=== PATIENT | female | born 1950 | race Caucasian/White ===

== ENCOUNTER → 2017-09-29 15:19 | Outpatient (CLI) | payer MEDICARE, OTHER, SELFPAY ==
--- NOTE | 2017-09-29 | DI.MRI.S_ITS ---
PROCEDURE: MR KNEE RT WO CON INDICATIONS: Right knee pain TECHNIQUE: Noncontrast sagittal PD fast spin echo and T2 fast spin echo with fat saturation, sagittal 3-D FLASH with fat saturation; coronal T1 spin echo and PD fast spin echo with fat saturation, and axial PD fast spin echo with fat saturation through the knee. COMPARISON: [facility] [place], [place], XR KNEE ARTHRITIC SERIES BI, 06/03/2017, 10:24. FINDINGS: Image quality: Excellent. Menisci: There is medial extrusion of the medial meniscus. There is radial tearing of the posterior horn medial meniscus, with superior and inferior articular surface extension. Horizontal tearing of the medial meniscal body and anterior horn is present. Amorphous high signal intensity within the anterior horn lateral meniscus is present with superior articular surface extension. Radial tearing of the free edge of the lateral meniscal body is present. Cruciate ligaments: The anterior and posterior cruciate ligaments appear intact. Medial structures: The medial collateral ligament appears intact. There is a small amount of fluid deep to the medial collateral ligament fibers. The posterior oblique ligament, semimembranosus tendon insertions, oblique popliteal ligament, and meniscocapsular junction appear intact. Visualized portions of the pes anserinus tendons appear normal. No abnormal bursal fluid. Lateral structures: The lateral collateral ligament, long and short heads of the biceps femoris tendon appear intact. The popliteus tendon appears normal; the popliteofibular ligament appears intact. The posterosuperior and anteroinferior popliteomeniscal fascicles appear intact. The arcuate and fabellofibular ligaments appear intact, on either side of the lateral inferior geniculate artery. Iliotibial band appears normal. Anterior structures: The quadriceps and patellar tendons appear intact. Patellar alignment is normal. No femoral trochlear dysplasia or ventral trochlear prominence. No edema in the infrapatellar fat pad. Bones and cartilage: No bone marrow contusions nor acute fractures. Subchondral low T2 signal intensity within the weightbearing aspects of the medial femoral condyle and medial tibial plateau. There is cortical irregularity overlying the mid/anterior weightbearing aspect of the lateral femoral condyle. Severe tricompartmental periarticular osteophyte formation is present. There is moderate ill-defined, presumably degenerative marrow edema within the medial lateral tibial plateau, medial lateral femoral condyle, as well as the lateral patellar facet and lateral femoral trochlea. Severe diffuse articular cartilage loss overlies the weightbearing aspects of the medial femoral condyle and medial tibial plateau. Moderate to severe diffuse irregular articular cartilage loss overlies the weightbearing aspects of the lateral femoral condyle and lateral tibial plateau. Severe diffuse articular cartilage loss overlies the medial and lateral patellar facets, as well as the lateral femoral trochlea. Joint space: There is a small knee joint effusion and a trace Corley's cyst. Normal appearing synovial plicae are incidentally noted. IMPRESSION: 1. Severe tricompartmental osteoarthritis with associated articular cartilage loss. Osteochondral injury within the medial femoral condyle and medial tibial plateau. 2. Possible chronic fracture deformity of the lateral femoral condyle. 3. Medial and lateral meniscal tearing. 4. Medial collateral ligament bursitis. 5. Knee joint effusion and trace Corley's cyst. Dictated by: Manish Carver M.D. on 09/29/2017 at 16:36 Approved by: Manish Carver M.D. on 09/29/2017 at 16:40
== END ==
PROVIDERS: PCP Family Medicine; Visit Provider Orthopaedic Surgery
DX: M25.561 Pain in right knee (principal); M17.11 Unilateral primary osteoarthritis, right knee; S83.241A Other tear of medial meniscus, current injury, right knee, initial encounter; S83.281A Other tear of lateral meniscus, current injury, right knee, initial encounter; M70.51 Other bursitis of knee, right knee; M25.461 Effusion, right knee
CPT/HCPCS: 73721

== ENCOUNTER → 2017-10-18 13:51 | Outpatient (CLI) | payer MEDICARE, OTHER, SELFPAY ==
[2017-10-18 14:06] LABS: Bacteria Urine None Seen; RBC Urine None Seen (0-5/HPF)
[2017-10-18 15:06] LABS: Add Manual Diff / Slide Review NO; Basophils Percent Auto 1.3 % (0-2); Eosinophils Percent Auto 6.4 % (2-4); Hematocrit 39.6 % (36-46); Hemoglobin 13.3 g/dL (12.0-16.0); Lymphocytes Percent Auto 20.5 % (25-40); Mean Corpuscular HGB Conc 33.6 % (30-36); Mean Corpuscular Hemoglobin 30.1 PG (26-34); Mean Corpuscular Volume 89.7 fL (80-100); Monocytes Percent Auto 8.9 % (3-14); Neutrophils Absolute Auto 2600 /uL (3000-5900); Neutrophils Percent Auto 62.9 % (50-75); Platelet Count 228 X10^3/uL (150-400); Red Blood Cell Count 4.41 X10^6/uL (4.0-5.2); Red Cell Distribution Width 13.6 % (11.6-14.8); White Blood Cell Count 4.1 X10^3/uL (4.5-11.0)
[2017-10-18 15:19] LABS: Hemoglobin A1C% w Est Avg Glu 4.9 % (4.0-6.0)
[2017-10-18 15:26] LABS: Appearance Urine UA CLEAR; Bilirubin Urine UA NEGATIVE (NEGATIVE); Color Urine UA YELLOW; Glucose Urine UA NEGATIVE (Normal); Ketones Urine UA NEGATIVE (NEGATIVE); Leukocyte Esterase Urine UA NEGATIVE (NEGATIVE); Nitrite Urine UA Negative (Negative); Occult Blood Urine UA NEGATIVE (Negative); Protein Urine UA NEGATIVE (Negative); Specific Gravity Urine UA <=1.005 (1.000-1.035); Urobilinogen Urine UA 0.2 E.U./dL (0.2)
[2017-10-18 15:31] LABS: BUN Creatinine Ratio 21.4 (6-22); Blood Urea Nitrogen 15 mg/dL (7-17); Calcium 9.5 mg/dL (8.4-10.2); Carbon Dioxide 31 mmol/L (22-32); Chloride 101 mmol/L (98-107); Estimated Glomerular Filt Rate > 60.0 mL/min (>60); Glucose 81 mg/dL (80-110); HEMOLYSIS < 15 (0-50); Potassium 4.5 mmol/L (3.4-5.1); Sodium 141 mmol/L (137-145)
[2017-10-18 15:58] LABS: Culture Indicated Urine Cult Not Indicated; Squamous Epithelial Cell Urine 0-1 /HPF; WBC Urine 0-1/HPF (0-5/HPF)
== END ==
PROVIDERS: PCP Family Medicine; Visit Provider Orthopaedic Surgery
DX: N39.9 Disorder of urinary system, unspecified (principal); R73.09 Other abnormal glucose; Z01.812 Encounter for preprocedural laboratory examination; Z01.818 Encounter for other preprocedural examination
CPT/HCPCS: 36415; 80048; 81001; 83036; 85025; 93005

== ENCOUNTER 2017-11-26 07:31 | Observation (INO) | payer MEDICARE, OTHER, SELFPAY ==
[2017-11-17 12:44] VITALS: BMI 27.9
[2017-11-25] VITALS (15 sets, daily range): BP systolic 102–143; BP diastolic 52–97; PULSE 67–87; RESP 10–16; TEMP 36–36.9; O2SAT 93–100; BMI 27.9
--- NOTE | 2017-11-25 06:00 | DI.RAD.S_ITS ---
PROCEDURE: XR KNEE RT 1TO2V INDICATIONS: post op TECHNIQUE: 2 view(s) of the knee acquired. COMPARISON: None. FINDINGS: Bones: Patient is status post knee joint arthroplasty. Hardware components are in expected positions. Visualized bony structures are intact. Soft tissues: Overlying postoperative changes are noted. IMPRESSION: Surgical drain overlies the operative bed. Normal postoperative alignment after right total knee arthroplasty. Dictated by: Devang Quesada M.D. on 11/25/2017 at 11:19 Approved by: Devang Quesada M.D. on 11/25/2017 at 11:19
[2017-11-25] MEDS: MELOXICAM 7.5 MG TABLET 15 MG PO (07:04)
[2017-11-25] MEDS: ACETAMINOPHEN 325 MG TABLET 975 MG PO ×2 (07:04→16:06)
[2017-11-25] MEDS: PREGABALIN 75 MG CAPSULE PO (07:04)
[2017-11-25] MEDS: LACTATED RINGERS 1,000 ML 42 ML IV (07:05)
[2017-11-25] MEDS: VANCOMYCIN 1,000 MG/200 ML FROZ.PIGGY 200 MG IV (07:12)
--- NOTE | 2017-11-25 07:32 | PM.PREOP ---
Pre-operative Note Interval Note Pre-op Check: Yes History & Physical Reviewed by Physician and Yes Exam Performed Changes: No
--- NOTE | 2017-11-25 07:32 | PM.OP.1 ---
Operative Date/Time/Diagnoses Date of procedure: 11/25/17 Time of procedure: 07:58 Pre-op diagnosis: right knee oa Post-op diagnosis: same Procedure & Clinicians Procedure: right total knee Same procedure as scheduled: Yes Indications: The patient has had progressively worsening right knee pain with radiographic changes consistent with arthritis. Non-operative management has failed and the patient has requested total knee replacement. The risks, benefits and alternatives to surgery were discussed with the patient prior to proceeding. Risks discussed included, but were not limited to, failure to relieve pain, stiffness, infection, nerve damage, deep venous thrombosis, pulmonary embolism, stroke, coma, heart attack, permanent paralysis and , as well as the potential need for eventual revision of the prosthetic. Surgeon: Nikki Ta Environmental Field Office Manager: Ashley Watkins Anesthesia Type: Spinal Operative Notes Findings: Severe right knee osteoarthritis Closure Type: primary Implants & Drains: Ta and Nephalvino Dominguez BCS2 femur 6, tibia 5, poly 9, patella 35 by 9 Applied: drain(s) Estimated Blood Loss (mL): 250 Blood products transfused: none Tourniquet time (min): 72 Procedure in detail: The patient was seen in the pre-operative area, where the patient identified the right knee as the operative site and this was marked with my initials. The patient received pre-operative antibiotics, and was taken to the operating room and placed on the operative table in the supine position. After satisfactory anesthesia, a multimedia programmer out was performed. The right leg was encircled with a tourniquet about the proximal thigh, and the leg was prepared from the toes to the tourniquet with ChloroPrep in the usual fashion and draped through sterile drapes. The leg was elevated and exsanguinated with Eschmark bandage and the tourniquet inflated to [250] mmHg pressure. The knee was approached through an approximately 18 cm incision centered over the patella and carried into the knee through a medial parapatellar arthrotomy. Portion of the medial and lateral meniscus was resected. Soft tissue was carefully mobilized around the patella the patella was measured with a caliper. Bone was resected from the patella and the patellar height was reconstituted with up an appropriate sized patellar component. For a cover was then placed on the patella. A small amount of additional medial and lateral meniscus was resected. The visionare guide fit well to the distal femur. It looked like an appropriate distal femoral cut and the cut was made without difficulty. The rotation was assessed and the appropriate size femoral guide was placed on the distal femur and finishing cuts were made. There was no evidence of notching. The anterior, posterior and chamfer cuts were then made. The posterior osteophytes and soft tissues were then removed. The posterior capsule was injected with part of a mixture of 60 ml 0.25% Marcaine mixed with 20 ml Exparel for post operative pain control. The remainder of this mixture was injected into the capsule and subcutaneous tissues during cement curing. The tibia was prepared and the visionaire guide fit well to the distal tibia. The rotation was assessed. The patient was placed in extension residual medial and lateral meniscus as well as any residual bone was carefully resected. [No] additional tibia was resected. Hemostasis was achieved especially posteriorly. Additional local was injected into the posterior capsule. The extension gap was assessed and additional releases for gap balancing were performed as necessary. It was checked with the gap motorcycle police officer. The femoral component was trial was placed and the notch was finished. Trial tibial and femoral components were then placed and the knee placed through a range of motion. Range of motion was [0-130], with good stability throughout the range. The trials were then removed, and the tibia was finished. The bone was prepared with pulsatile lavage, and dried with a sponge. Cement was applied and the final prosthetics placed. Excess cement was removed during and after cement curing. A brief Betadine soak was performed. After confirming there was no extruded cement posteriorly, the final tibial insert was placed. The knee was copiously irrigated and the tourniquet deflated. Hemostasis was obtained with the [Aquamantys system]. A drain was placed and brought out superolaterally. The capsule was closed with interrupted # 1 black braided suture. The subcutaneous layer was closed with barbed sutures, and the skin with a running 3-0 V-Lock suture and Surgical glue. An Aquacel Ag dressing was applied and the patient was taken to recovery having tolerated the procedure well. Complications: none Condition: stable Disposition: Acute Care Plan for aftercare: The patient will be maintained on a standard total knee replacement protocol with weight bearing as tolerated. The patient will receive Lovenox and sequential compression devices for DVT prophylaxis. The patient will be discharged home when safe for the home environment.
--- NOTE | 2017-11-25 07:39 | P.OP_ITS ---
Operative Date/Time/Diagnoses Date of procedure: 11/25/17 Time of procedure: 07:58 Pre-op diagnosis: right knee oa Post-op diagnosis: same Procedure & Clinicians Procedure: right total knee Same procedure as scheduled: Yes Indications: The patient has had progressively worsening right knee pain with radiographic changes consistent with arthritis. Non-operative management has failed and the patient has requested total knee replacement. The risks, benefits and alternatives to surgery were discussed with the patient prior to proceeding. Risks discussed included, but were not limited to, failure to relieve pain, stiffness, infection, nerve damage, deep venous thrombosis, pulmonary embolism, stroke, coma, heart attack, permanent paralysis and , as well as the potential need for eventual revision of the prosthetic. Surgeon: Nikki Ta Roller Inspector: Ashley Watkins Anesthesia Type: Spinal Operative Notes Findings: Severe right knee osteoarthritis Closure Type: primary Implants & Drains: Ta and Nephalvino Dominguez BCS2 femur 6, tibia 5, poly 9, patella 35 by 9 Applied: drain(s) Estimated Blood Loss (mL): 250 Blood products transfused: none Tourniquet time (min): 72 Procedure in detail: The patient was seen in the pre-operative area, where the patient identified the right knee as the operative site and this was marked with my initials. The patient received pre-operative antibiotics, and was taken to the operating room and placed on the operative table in the supine position. After satisfactory anesthesia, a evp global multimedia sales out was performed. The right leg was encircled with a tourniquet about the proximal thigh, and the leg was prepared from the toes to the tourniquet with ChloroPrep in the usual fashion and draped through sterile drapes. The leg was elevated and exsanguinated with Eschmark bandage and the tourniquet inflated to [250] mmHg pressure. The knee was approached through an approximately 18 cm incision centered over the patella and carried into the knee through a medial parapatellar arthrotomy. Portion of the medial and lateral meniscus was resected. Soft tissue was carefully mobilized around the patella the patella was measured with a caliper. Bone was resected from the patella and the patellar height was reconstituted with up an appropriate sized patellar component. For a cover was then placed on the patella. A small amount of additional medial and lateral meniscus was resected. The visionare guide fit well to the distal femur. It looked like an appropriate distal femoral cut and the cut was made without difficulty. The rotation was assessed and the appropriate size femoral guide was placed on the distal femur and finishing cuts were made. There was no evidence of notching. The anterior, posterior and chamfer cuts were then made. The posterior osteophytes and soft tissues were then removed. The posterior capsule was injected with part of a mixture of 60 ml 0.25% Marcaine mixed with 20 ml Exparel for post operative pain control. The remainder of this mixture was injected into the capsule and subcutaneous tissues during cement curing. The tibia was prepared and the visionaire guide fit well to the distal tibia. The rotation was assessed. The patient was placed in extension residual medial and lateral meniscus as well as any residual bone was carefully resected. [No] additional tibia was resected. Hemostasis was achieved especially posteriorly. Additional local was injected into the posterior capsule. The extension gap was assessed and additional releases for gap balancing were performed as necessary. It was checked with the gap shop and alteration tailor. The femoral component was trial was placed and the notch was finished. Trial tibial and femoral components were then placed and the knee placed through a range of motion. Range of motion was [ 0-130], with good stability throughout the range. The trials were then removed, and the tibia was finished. The bone was prepared with pulsatile lavage, and dried with a sponge. Cement was applied and the final prosthetics placed. Excess cement was removed during and after cement curing. A brief Betadine soak was performed. After confirming there was no extruded cement posteriorly, the final tibial insert was placed. The knee was copiously irrigated and the tourniquet deflated. Hemostasis was obtained with the [Aquamantys system]. A drain was placed and brought out superolaterally. The capsule was closed with interrupted # 1 black braided suture. The subcutaneous layer was closed with barbed sutures, and the skin with a running 3 -0 V-Lock suture and Surgical glue. An Aquacel Ag dressing was applied and the patient was taken to recovery having tolerated the procedure well. Complications: none Condition: stable Disposition: Acute Care Plan for aftercare: The patient will be maintained on a standard total knee replacement protocol with weight bearing as tolerated. The patient will receive Lovenox and sequential compression devices for DVT prophylaxis. The patient will be discharged home when safe for the home environment.
[2017-11-25] MEDS: fentaNYL 100 MCG/2 ML INJ IV ×2 (07:50→07:55)
[2017-11-25] MEDS: MIDAZOLAM 2 MG/2 ML VIAL IV (07:50)
--- NOTE | 2017-11-25 08:09 | SUR.PREOP ---
Block start time 0752[] . Monitoring initiated and maintained throughout procedure. Oxygen and medications given per anesthesiologist instructions. Patient remained stable throughout procedure, no adverse reactions noted. Block end time [0758].
[2017-11-25] MEDS: CEFAZOLIN 2 GM/100 ML FROZ.PIGGY IV ×3 (08:16→21:22)
--- NOTE | 2017-11-25 08:51 | SUR.OPER ---
Supine on padded OR bed. Pillow under head, arms secured on padded armboards <90 degree abduction. Safety belt across torso. Non-operative leg secured with tape over blanket over lower leg. Operative leg secured in DeMayo/Suhail positioner. Foam padded brace at thigh of operative leg.
[2017-11-25] MEDS: BUPIVACAINE 0.25% W/ EPI VIAL 60 ML INJ (08:56)
[2017-11-25] MEDS: BUPIVACAINE LIPOSOME 266 MG/20 ML VIAL INJ (09:05)
[2017-11-25] MEDS: POVIDONE-IODINE 15 ML, SODIUM CHLORIDE 0.9% 250 ML TOP (09:51)
[2017-11-25] MEDS: hydrOXYzine 50 MG/ML INJ 25 MG IM (10:42)
--- NOTE | 2017-11-25 10:45 | SUR.PHASEI ---
spinal sensation level at L1 for wet and cold. able to feel sensation at feet but not differentiate.
[2017-11-25] MEDS: LACTATED RINGERS 1,000 ML 125 ML IV (11:45)
[2017-11-25] MEDS: OXYCODONE IR 5 MG TABLET PO (12:17)
[2017-11-25] MEDS: ONDANSETRON 4 MG ODT PO (14:45)
--- NOTE | 2017-11-25 15:01 | PC.NURSE ---
Pt sitting up in bed, states she is feeling dizzy and nauseated. Pt was complaining of needing to void. 375mls out of hemovac. 79/P.T. in room to get Pt up for the first time and bp reading was 75/34, bp rechecked after Zofran ODT given and bp decreased to 69/35, Pt placed in trendelenberg position which she stated felt better and bp rechecked to 93/56. Dr. Ta called and IV LR 500 bolus ordered. Pt states this happened before when she had surgery. All prior reading from 11:00 until this time have been in the low 100's to 1 teens. Pt states she is feeling better and IVF infusing. Seizure pads on bed for CIWA precautions. Pt report will be given to Rasheed MARTINEZ and Pt will continue to be monitor closely. Spouse is at the bedside.
--- NOTE | 2017-11-25 15:05 | PT.IPTN ---
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 Nurse informed and pt left with ice on knee and nursing put pt in trendelenburg.
[2017-11-25] MEDS: LACTATED RINGERS 500 ML 1000 ML IV (16:02)
[2017-11-25] MEDS: HYDROCODONE/ACET 5/325 TABLET 2 TAB PO (21:18)
[2017-11-25] MEDS: ATORVASTATIN 10 MG TABLET PO (21:19)
[2017-11-25] MEDS: ASPIRIN EC 81 MG TABLET PO (21:19)
[2017-11-25] MEDS: DOCUSATE 100 MG CAPSULE PO (21:19)
[2017-11-26] MEDS: OXYCODONE IR 5 MG TABLET PO ×7 (00:19→23:39)
[2017-11-26] MEDS: LACTATED RINGERS 1,000 ML 125 ML IV (01:49)
[2017-11-26] MEDS: LEVOTHYROXINE 150 MCG TABLET PO (05:45)
[2017-11-26 06:10] VITALS: BP 141/80; PULSE 83; RESP 16; TEMP 36.8; O2SAT 96
[2017-11-26 07:54] LABS: Hematocrit 33.4 % (36-46); Hemoglobin 11.3 g/dL (12.0-16.0)
[2017-11-26] MEDS: ACETAMINOPHEN 325 MG TABLET 975 MG PO ×2 (09:04→13:25)
[2017-11-26] MEDS: ASPIRIN EC 81 MG TABLET PO ×2 (09:05→20:27)
[2017-11-26] MEDS: LORATADINE 10 MG TABLET PO (09:05)
[2017-11-26] MEDS: DOCUSATE 100 MG CAPSULE PO ×2 (09:06→20:28)
[2017-11-26] MEDS: MULTIVIT,CALC,MINS/IRON/FOLIC 1 TABLET 1 TAB PO (09:06)
[2017-11-26] MEDS: IBUPROFEN 600 MG TABLET PO (09:07)
[2017-11-26 09:20] VITALS: BP 123/74; PULSE 90; RESP 17; TEMP 37.4; O2SAT 96
--- NOTE | 2017-11-26 10:50 | PM.PNPO.1 ---
Subjective Date Patient Seen: 11/26/17 Time Patient Seen: 10:50 Interval history: Patient's pain is [id number]. Patient is finished with physical therapy and got dizzy and hypertensive. Patient need to get back in bed. Patient did not receive physical therapy yesterday. She denies fever chills. No nausea vomiting. No shortness of breath or chest pain. Exam Vital Signs (past 8 hours): - 11/26/17 06:10 11/26/17 09:20 Temperature 98.3 F 99.4 F Pulse Rate 83 90 Respiratory Rate 16 17 Blood Pressure 141/80 H 123/74 H Pulse Oximetry 96 96 Oxygen Delivery Method Room Air Narrative Exam Narrative: Pleasant 67-year-old female resting comfortably in bed in no apparent distress. Right knee dressing is moist otherwise intact. Drain is intact and will be removed today. Sensation grossly intact to light touch in distal right lower extremity. Motor functions intact distal right lower extremity. The lower extremity is warm and dry. Objective Labs Result Diagrams: 11/26/17 07:44 Labs: Laboratory Results - last 24 hr 11/26/17 07:44 Hgb 11.3 L Hct 33.4 L Assessment & Plan Post-op Postoperative Procedures Operation Date: 11/25/17 07:45 Actual Procedures Side Surgeon p Total Knee Arthroplasty Right Nikki Ta MD Patient status post right total knee arthroplasty. Patient slow to mobilize secondary to dizziness and hypotension. Patient will continue to work with physical therapy today and if stable likely discharge home tomorrow. Time Spent With Patient less than 15 minutes Quality VTE Deep Vein Thrombosis/Pulmonary Embolism Present on Admission: No
--- NOTE | 2017-11-26 13:28 | PT.IIE ---
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, right shoulder (11/25/17) Surgery Performed Operation Date: 11/25/17 07:45 Actual Procedures p Total Knee Arthroplasty(Right) - Nikki Ta MD Surgical History (Last Reviewed 11/26/17 @ 08:44 by Li Lopez, PT) History of aortic valve replacement (Acute) History of arthroplasty of left knee (Acute) History of left oophorectomy (Acute) Hx of gastric bypass (Acute) S/P wrist surgery (Acute) Medical History (Last Reviewed 11/26/17 @ 08:44 by Li Lopez, PT) Anemia (Acute) Aortic stenosis (Acute) Arthritis (Acute) DJD (degenerative joint disease) (Acute) Dyslipidemia (Acute) Easy bruisability (Acute) Fracture of left hip requiring operative repair (Acute) Hypothyroidism (Acute) Multinodular goiter (Acute) Obstructive sleep apnea (Acute) Osteoporosis (Acute) Paroxysmal A-fib (Acute) Seasonal allergies (Acute) Systolic murmur (Acute) Tendinitis of left shoulder (Acute) Physical Therapy Inpatient Evaluation/Re-Eval M1 PT/OT-IP Prior Functional Status Start: 11/25/17 15:03 Freq: NEEDED Status: Active Protocol: Document 11/26/17 12:55 DLM (Rec: 11/26/17 13:28 DLM [id number]) Medical Review Prior Functional Status Medical History Reviewed Yes Diet/Fluid Consistency Regular Communication WNL Mobility and Gait Independent without device Activities of Daily Living and IADL's Independent Prior Functional Level (Other details) has had out-pt physical therapy in past, also attended cardiac rehab after heart procedure, goes to the gym ( [employer]) regularly and uses treadmills and weights. Social History Household Members spouse Living Arrangements House Number of Floors (Floors) One Floor Number of Stairs To Enter/Railing? 3 steps down to living room, one rail Home Equipment Front Wheel Walker Four Wheel Walker Hand Held Shower Leg Human Resource Manager Grab Bars In Shower Employment Status Retired Additional Social History Comment she prefers to stand for the shower holding grab bar and Spouse assists with cleaning, recliner at home has power adjustments for back and legrest. Her Spouse assisted her after her prior surgeries. M2 PT-IP Current Condition Start: 11/25/17 15:03 Freq: NEEDED Status: Active Protocol: Document 11/26/17 12:55 DLM (Rec: 11/26/17 13:28 DL [id number]) Physical Therapy Current Condition Current Condition Evaluation Date 11/26/17 Treatment Diagnosis right TKA, impaired gait Onset Date 11/25/17 Weight Bearing Status Weight Bearing Status Weight Bear as Tolerated M3 PT-IP Subjective Start: 11/25/17 15:03 Freq: NEEDED Status: Active Protocol: Document 11/26/17 12:55 DLM (Rec: 11/26/17 13:28 DL [id number]) Subjective Physical Therapy Visit Type Type Initial Evaluation Visit Start Time 10:06 Visit Stop Time 10:55 Total Visit Minutes 49 Number of MANAGER VISUAL Visits 0 Physical Therapy Visit Comments Patient Comments she was discouraged that she could not get up yesturday, got light-headed when up to bedside commode with nursing earlier today Short Term Goals Discharge home with her to help her Therapy Pain Assessment Pain When Pain Assessed During Mobility Pain Present Pain Present Pain Reported Location Right Knee Intensity 5 Scale Used Numeric (1 - 10) Description Aching Acute Cramping Pain Behaviors Facial Grimacing Guarding Pain Management Techniques Apply Cold Elevation Timing of Activity with Medications M4 PT-IP Mobility and Gait Start: 11/25/17 15:03 Freq: NEEDED Status: Active Protocol: Document 11/26/17 12:55 DLM (Rec: 11/26/17 13:28 DL [id number]) PT-Bed Mobility Assessment Supine to Sit Supine to Sit Standby Assistance Sit to Supine Sit to Supine Minimal Assistance Scooting Scooting to Edge of Bed Standby Assistance Scooting Up and Down in Bed Standby Assistance PT-Transfer Assessment Sit to and From Stand Sit to and from Stand Contact Guard Assistance Use of Upper Extremities Equipment Transfer Assistive Device Gait Belt Front Wheeled Walker Orthotic/Prosthetic Devices or Brace: Yes Comments Mobility Comments did not get pt up to recliner due to light-headedness and decline in blood pressure, two standing trials performed at edge of bed but her symptoms only got worse so she returned to bed to rest Gait Assessment Gait Gait Assistance Required: Contact Guard Assist Assistive Devices Assistive Device Gait Belt Front Wheeled Walker Orthotic/Prosthetic Devices or Brace: No Gait Deviations General Gait Pattern Antalgic Factors Limiting Gait Function Factors Limiting Gait Function Decreased Activity Tolerance Decreased Strength Limited Range of Motion Pain Poor Balance Comments Gait Comments static standing and stepping in place at edge of bed, pt becomes light headed and describes seeing black spots, she had to return to bed to resolve her symptoms PT-Balance Assessment Sitting Balance and Reactions Static Sitting Balance Ability Normal Dynamic Sitting Balance Ability Normal Standing Balance and Reactions Static Standing Balance Ability Good Dynamic Standing Balance Ability Good Device Used FWW M5 PT-IP Objective Assessments Start: 11/25/17 15:03 Freq: NEEDED Status: Active Protocol: Document 11/26/17 12:55 DLM (Rec: 11/26/17 13:28 [facility] [id number]) Orientation Orientation/Cognition Level of Alertness Alert Orientation Name Age Birthday Month Date Year Day of Week Place Situation Language Function Ability No Deficits Noted Safety Awareness Understands Safety Issues Memory Description No Deficits Noted Gross Range of Motion Upper Extremity ROM Assessment Within Functional Limits Lower Extremity ROM Assessment Right Impaired Impairments pain post-op, knee AROM 10-/6 degrees Strength Upper Extremity Strength Assessment Within Functional Limits Lower Extremity Strength Assessment Right Impaired Hip needs assist with SLR Knee knee flex 3+/5, knee ext 2+/5 Ankle DF 4+/5 Comments Strength Comments pain interferes with right knee strength Coordination Assessment Gross Coordination Gross Coordination WNL Sensation Assessment Sensation Gross Sensation WNL Muscle Tone Muscle Tone WNL Yes M6 PT-IP Treatment Start: 11/25/17 15:03 Freq: NEEDED Status: Active Protocol: Document 11/26/17 12:55 DLM (Rec: 11/26/17 13:28 [facility] [id number]) Physical Therapy Treatment Exercises Exercises Ankle Pumps Quad Sets Heel Slides Straight Leg Raises Short Arc Quads Passive Knee Extension Hang Seated Knee Flexion/Extension Education Education Provided Weight Bearing Status Post-Op Packet Safety Equipment Issued Equipment Type and Company pt has a FWW from home but it is in the car at this time Other Treatments Other Treatment Performed Vital signs during activity. Supine: BP 108/66, HR 84 Sitting: BP 101/40, HR 102 Standing: BP 88/59 HR 90 Second standing trail unable to get BP and pt too light- headed to stay up. Supine: 111/65 HR 77 Supine: 107/70 HR 71 M7 PT-IP Assessment and Plan Start: 11/25/17 15:03 Freq: NEEDED Status: Active Protocol: Document 11/26/17 12:55 DLBang (Rec: 11/26/17 13:28 DLM [id number]) PT Summary Assessment and Plan Potential Rehabilitation Potential Good Status of Condition at Evaluation Unstable Summary Impairments Pain ROM Strength Balance Bed Mobility Transfers Gait Activity Tolerance Assessment Summary Pt continues to have difficulty with unstable blood pressure during mobility that prevented gait this visit. Pt became light-headed in standing and describes seeing black spots. Her symptoms resolved in supine. Her Spouse is present and very supportive. Pt is motivated to discharge home. Will plan to progress her mobility as her BP becomes more stable when up . Goals Bed Mobility Goal Independent Transfer Goal Independent Front Wheeled Walker Gait Goal Independent Front Wheel Walker Gait Distance 50 Other Goals up and down 3 steps with rail and cane Days to Meet Goals 3 Frequency of Treatment Frequency Of Treatment Twice a Day Treatment Plan Physical Therapy Treatment Plan Bed Mobility Training Transfer Training Gait Training Therapeutic Exercise Balance Retraining Post Op Education Discharge Planning Hot or Cold Pack Other Recommendations and Next Treatment monitor BP Focus Recommendations To Nursing Amount of Assist Needed 1 Person Assist Discharge Recommendations PT Discharge Recommendations Home with Assistance Outpatient PT
--- NOTE | 2017-11-26 13:43 | CM.DANOTE ---
Patient is a 67 year old female who was admitted on 11/25/17 for Total Knee. Pt has [facility] and [employer] for insurance and her PCP is Dr. Meeks. EMR was reviewed. Per MD, pt having some bp issues and not stable for discharge home yet today. Per PT, pt ambulating quite well but having bp issues which have limited her yesterday and today. Per RN, very supportive spouse bedside. SW met bedside with pt and spouse and explained role and pt confirmed that she lives at home with her in [place] and is mostly Independent with ADL's at baseline and has a hx of hip surgery and heart surgery and states that her has been very helpful at home with assistance each time. Pt has grab bars and ramp already installed. Pt denies any hx of HH or SNF but would be agreeable to HH if recommended. Pt does not have DPOA but her informal DPOA is her and then her son who lives in [place]. SW discussed the purpose of DPOA and offered DPOA pwk but pt declined at this time. Pt and spouse do not anticipate any needs at d/c and preference is home when medically stable. Plan: SW to follow for further PT assess after blood pressure stablizes towards determining any further needs and r/o HH. JANNET Urb[place] Discharge Planning/Care Management CM Discharge Assessment Start: 11/26/17 13:40 Freq: Status: Active Protocol: Document 11/26/17 13:41 BF (Rec: 11/26/17 13:43 BF [id number]) Discharge Planning Assessment Assigned Counter Checker BOOKMOBILE LIBRARIAN History Provided By Patient Significant Other Has Patient been admitted in last 30 No days? Is this patient on Medicare? Yes Is the admit diagnosis the same? Yes Prior Living Arrangements House Household Members spouse Type of transporation used prior to Drives own vehicle admit Comment Independent at baseline Independent with ADL's Yes Is patient alert and oriented? Yes Caregiver for Another No DME Already Rented / Owned FWW / Walker Comment Grab bars and ramp already set up Community Services Needed at Discharge Physical Therapy Occupational Therapy Referrals Initiated None needed Comment Likely home with outpt therapy but following for poss HH Discharge Plan Home Transportation Arrangement Supportive spouse can provide transport home Review Status In Process Next Review Type Discharge Review
[2017-11-26 13:46] VITALS: BP 101/70; PULSE 88; RESP 16; TEMP 37.1; O2SAT 97
--- NOTE | 2017-11-26 14:55 | PT.IPTN ---
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, right shoulder (11/25/17) Surgery Performed Operation Date: 11/25/17 07:45 Actual Procedures p Total Knee Arthroplasty(Right) - Nikki Ta MD Physical Therapy Treatment Note M2 PT-IP Current Condition Start: 11/25/17 15:03 Freq: NEEDED Status: Active Protocol: Document 11/26/17 12:55 DLM (Rec: 11/26/17 13:28 DLM [id number]) Physical Therapy Current Condition Current Condition Evaluation Date 11/26/17 Treatment Diagnosis right TKA, impaired gait Onset Date 11/25/17 Weight Bearing Status Weight Bearing Status Weight Bear as Tolerated M3 PT-IP Subjective Start: 11/25/17 15:03 Freq: NEEDED Status: Active Protocol: Document 11/26/17 14:55 GGD (Rec: 11/26/17 16:28 GGD [id number]) Subjective Physical Therapy Visit Type Type Treatment Note Visit Start Time 14:25 Visit Stop Time 14:55 Total Visit Minutes 30 Number of LADLE FILLER Visits 1 Physical Therapy Visit Comments Patient Comments Pt states she feeling better and has been up to the [facility] with NSG. Therapy Pain Assessment Pain When Pain Assessed At Rest Pain Present Pain Present Pain Reported Location Right Knee Intensity 2 Scale Used Numeric (1 - 10) M4 PT-IP Mobility and Gait Start: 11/25/17 15:03 Freq: NEEDED Status: Active Protocol: Document 11/26/17 14:55 GGD (Rec: 11/26/17 16:28 GGD [id number]) PT-Bed Mobility Assessment Supine to Sit Supine to Sit Standby Assistance Scooting Scooting to Edge of Bed Standby Assistance PT-Transfer Assessment Sit to and From Stand Sit to and from Stand Contact Guard Assistance Use of Upper Extremities Equipment Transfer Assistive Device Gait Belt Front Wheeled Walker Transfers Transfer Destination Chair Toilet Comments Mobility Comments BP in supine 112/64, Sitting on EOB 127/57, Standing 111/49 , after activity in sitting 121/88 Gait Assessment Gait Gait Assistance Required: Contact Guard Assist Distance (Feet) (feet) 20 Able to Maintain Weight Bearing Status Yes During Gait Assistive Devices Assistive Device Gait Belt Front Wheeled Walker Orthotic/Prosthetic Devices or Brace: No Gait Deviations General Gait Pattern Antalgic Decreased Stride Length Decreased Feet Clearance Step-to Gait Factors Limiting Gait Function Factors Limiting Gait Function Decreased Activity Tolerance Decreased Strength Limited Range of Motion Pain M5 PT-IP Objective Assessments Start: 11/25/17 15:03 Freq: NEEDED Status: Active Protocol: Document 11/26/17 12:55 DLM (Rec: 11/26/17 13:28 DLM [id number]) Orientation Orientation/Cognition Level of Alertness Alert Orientation Name Age Birthday Month Date Year Day of Week Place Situation Language Function Ability No Deficits Noted Safety Awareness Understands Safety Issues Memory Description No Deficits Noted Gross Range of Motion Upper Extremity ROM Assessment Within Functional Limits Lower Extremity ROM Assessment Right Impaired Impairments pain post-op, knee AROM 10-/6 degrees Strength Upper Extremity Strength Assessment Within Functional Limits Lower Extremity Strength Assessment Right Impaired Hip needs assist with SLR Knee knee flex 3+/5, knee ext 2+/5 Ankle DF 4+/5 Comments Strength Comments pain interferes with right knee strength Coordination Assessment Gross Coordination Gross Coordination WNL Sensation Assessment Sensation Gross Sensation WNL Muscle Tone Muscle Tone WNL Yes M6 PT-IP Treatment Start: 11/25/17 15:03 Freq: NEEDED Status: Active Protocol: Document 11/26/17 14:55 GGD (Rec: 11/26/17 16:28 GGD [id number]) Physical Therapy Treatment Exercises Exercises Ankle Pumps Quad Sets Heel Slides Straight Leg Raises Short Arc Quads Seated Knee Flexion/Extension M7 PT-IP Assessment and Plan Start: 11/25/17 15:03 Freq: NEEDED Status: Active Protocol: Document 11/26/17 14:55 GGD (Rec: 11/26/17 16:28 GGD [id number]) PT Summary Assessment and Plan Summary Assessment Summary Pt maintain BP during mobility . She was able to progress gait and no C/O of light headiness. She had no LOB with gait, but a slow step to gait pattern. She will need to progress gait and stair training before D/C Frequency of Treatment Frequency Of Treatment Twice a Day Treatment Plan Physical Therapy Treatment Plan Bed Mobility Training Transfer Training Gait Training Therapeutic Exercise Balance Retraining Post Op Education Discharge Planning Hot or Cold Pack Other Recommendations and Next Treatment monitor BP, Stair training Focus Recommendations To Nursing Amount of Assist Needed 1 Person Assist Discharge Recommendations PT Discharge Recommendations Home with Assistance Outpatient PT
[2017-11-26 16:29] VITALS: BP 127/75; PULSE 77; RESP 16; TEMP 36.8; O2SAT 100
[2017-11-26] MEDS: ATORVASTATIN 10 MG TABLET PO (20:27)
[2017-11-26] MEDS: HYDROCODONE/ACET 5/325 TABLET 2 TAB PO (20:27)
[2017-11-26 21:18] VITALS: BP 133/77; PULSE 78; RESP 16; TEMP 37.1; O2SAT 100
[2017-11-27] VITALS: BP 103/61; PULSE 88; RESP 16; TEMP 36.8; O2SAT 97
[2017-11-27] MEDS: OXYCODONE IR 5 MG TABLET PO ×4 (02:50→12:15)
[2017-11-27] MEDS: IBUPROFEN 600 MG TABLET PO ×2 (02:51→09:19)
--- NOTE | 2017-11-27 04:59 | PC.NURSE ---
Noc Note: Drsg with leakage proximal to the knee, drsg was reinforced with ABD pad at 0300. ROSSY wrap remains in place. Pt requesting PRN oxycodone q3hrs. Ice pack to knee. Swelling to RLE and edema to bilat ankles noted.
[2017-11-27] MEDS: LEVOTHYROXINE 150 MCG TABLET PO (06:01)
[2017-11-27 08:13] VITALS: BP 110/67; PULSE 78; RESP 16; TEMP 36.6; O2SAT 97
[2017-11-27] MEDS: ACETAMINOPHEN 325 MG TABLET 975 MG PO (09:19)
[2017-11-27] MEDS: DOCUSATE 100 MG CAPSULE PO (09:19)
[2017-11-27] MEDS: MULTIVIT,CALC,MINS/IRON/FOLIC 1 TABLET 1 TAB PO (09:19)
[2017-11-27] MEDS: LORATADINE 10 MG TABLET PO (09:19)
[2017-11-27] MEDS: ASPIRIN EC 81 MG TABLET PO (09:20)
--- NOTE | 2017-11-27 10:02 | PM.DS.1 ---
History of Present Illness Date Patient Seen: 11/27/17 Time Patient Seen: 10:02 Chief complaint: total knee arthroplasty [id number] Narrative: The patient is progressing as expected after her total knee arthroplasty. Her pain is under control. She did have some leakage from her dressing which was changed today. She is doing well with physical therapy. She is in our [facility] protocol. Discharge Providers Date of admission: 11/25/17 06:32 Primary care physician: Bear Meeks MD Consults: 11/25/17 11:11 Consult to Discharge Planning Routine Comment: Consult to Physical Therapy Evaluate & Treat Comment: Physician Instructions: postop TKA protocol Consult to Respiratory Therapy Evaluate & Treat Comment: Physician Instructions: Evaluate and treat 11/25/17 12:05 Consult to Apprentice Machinist Outside Routine Comment: Discharge provider: Catrachito Flower MD Summary Discharge Diagnosis: Knee arthritis Hospital Course: Routine hospital course following total knee arthroplasty. She did have some leakage from her dressing which was changed on the day of discharge. Status at Discharge Cognitive/behavioral status at discharge: Normal Functional status at discharge: uses cane/walker Overall status at discharge: patient is progressing back to baseline Time Spent with Patient Less than 30 minutes Exam Vital Signs (past 8 hours): - 11/27/17 08:13 Temperature 97.9 F Pulse Rate 78 Respiratory Rate 16 Blood Pressure 110/67 Pulse Oximetry 97 Oxygen Delivery Method Room Air Extrem Other: There is some leakage from the upper part of the dressing. The dressing was changed. Expected swelling and warmth. Range of motion is limited by pain as expected. The leg is warm appears well perfused. Objective Labs Result Diagrams: 11/26/17 07:44 Discharge Plan Discharge Plan Patient Disposition: Home, Self-Care Discharge comment: The patient is progressing as expected after her total knee. Her dressing was changed today. She will be discharged to home. She will be on the [facility] program. Discharge Med Rec/Prescriptions Prescriptions: Continue cetirizine [Zyrtec] 10 mg Tablet 10 mg PO BEDTIME RF: 0 atorvastatin 10 mg Tablet 10 mg PO BEDTIME RF: 0 hydrocodone-acetaminophen 5-325 mg Tablet 2 tab PO BEDTIME RF: 0 aspirin 81 mg Tablet,Delayed Release (Dr/Ec) 81 mg PO BID RF: 0 levothyroxine 150 mcg Capsule 150 mcg PO DAILY RF: 0 uxbswaax-lnk-vdma-FA-lutein [Centrum Silver Women] 8 mg iron-400 mcg-300 mcg Tablet 1 tab PO DAILY RF: 0 Provider Discharge Instructions Diet: Regular Activity: Weight bearing as tolerated. Progress range of motion and activity as tolerated. Cold/Heat Therapy: Ice the knee as needed for pain. Wound Care Report to your healthcare provider any signs of infection, such as:: chills, fever, night sweats, increased pain and unusual drainage Dressing: May leave dressing on for 7-10 days. May shower over dressing is intact. Discharge Data Primary Care Provider: Bear Meeks Attending Provider: Nikki Ta Admit Date/Time: 11/25/17 06:32 Quality VTE Deep Vein Thrombosis/Pulmonary Embolism Present on Admission: No
--- NOTE | 2017-11-27 10:05 | P.DS_ITS ---
History of Present Illness Date Patient Seen: 11/27/17 Time Patient Seen: 10:02 Chief complaint: total knee arthroplasty [id number] Narrative: The patient is progressing as expected after her total knee arthroplasty. Her pain is under control. She did have some leakage from her dressing which was changed today. She is doing well with physical therapy. She is in our [facility] protocol. Discharge Providers Date of admission: 11/25/17 06:32 Primary care physician: Bear Meeks MD Consults: 11/25/17 11:11 Consult to Discharge Planning Routine Comment: Consult to Physical Therapy Evaluate & Treat Comment: Physician Instructions: postop TKA protocol Consult to Respiratory Therapy Evaluate & Treat Comment: Physician Instructions: Evaluate and treat 11/25/17 12:05 Consult to Spike Driver Routine Comment: Discharge provider: Catrachito Flower MD Summary Discharge Diagnosis: Knee arthritis Hospital Course: Routine hospital course following total knee arthroplasty. She did have some leakage from her dressing which was changed on the day of discharge. Status at Discharge Cognitive/behavioral status at discharge: Normal Functional status at discharge: uses cane/walker Overall status at discharge: patient is progressing back to baseline Time Spent with Patient Less than 30 minutes Exam Vital Signs (past 8 hours): - 11/27/17 08:13 Temperature 97.9 F Pulse Rate 78 Respiratory Rate 16 Blood Pressure 110/67 Pulse Oximetry 97 Oxygen Delivery Method Room Air Extrem Other: There is some leakage from the upper part of the dressing. The dressing was changed. Expected swelling and warmth. Range of motion is limited by pain as expected. The leg is warm appears well perfused. Objective Labs Result Diagrams: 11/26/17 07:44 Discharge Plan Discharge Plan Patient Disposition: Home, Self-Care Discharge comment: The patient is progressing as expected after her total knee. Her dressing was changed today. She will be discharged to home. She will be on the [facility] program. Discharge Med Rec/Prescriptions Prescriptions: Continue cetirizine [Zyrtec] 10 mg Tablet 10 mg PO BEDTIME RF: 0 atorvastatin 10 mg Tablet 10 mg PO BEDTIME RF: 0 hydrocodone-acetaminophen 5-325 mg Tablet 2 tab PO BEDTIME RF: 0 aspirin 81 mg Tablet,Delayed Release (Dr/Ec) 81 mg PO BID RF: 0 levothyroxine 150 mcg Capsule 150 mcg PO DAILY RF: 0 hxmdfkdy-hwi-fsas-FA-lutein [Centrum Silver Women] 8 mg iron-400 mcg-300 mcg Tablet 1 tab PO DAILY RF: 0 Provider Discharge Instructions Diet: Regular Activity: Weight bearing as tolerated. Progress range of motion and activity as tolerated. Cold/Heat Therapy: Ice the knee as needed for pain. Wound Care Report to your healthcare provider any signs of infection, such as:: chills, fever, night sweats, increased pain and unusual drainage Dressing: May leave dressing on for 7-10 days. May shower over dressing is intact. Discharge Data Primary Care Provider: Bear Meeks Attending Provider: Nikki Ta Admit Date/Time: 11/25/17 06:32 Quality VTE Deep Vein Thrombosis/Pulmonary Embolism Present on Admission: No
--- NOTE | 2017-11-27 12:09 | PT.IPTN ---
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, right shoulder (11/25/17) Surgery Performed Operation Date: 11/25/17 07:45 Actual Procedures p Total Knee Arthroplasty(Right) - Nikki Ta MD Physical Therapy Treatment Note M2 PT-IP Current Condition Start: 11/25/17 15:03 Freq: NEEDED Status: Active Protocol: Document 11/26/17 12:55 DLM (Rec: 11/26/17 13:28 DLM [id number]) Physical Therapy Current Condition Current Condition Evaluation Date 11/26/17 Treatment Diagnosis right TKA, impaired gait Onset Date 11/25/17 Weight Bearing Status Weight Bearing Status Weight Bear as Tolerated M3 PT-IP Subjective Start: 11/25/17 15:03 Freq: NEEDED Status: Active Protocol: Document 11/27/17 09:52 CLB (Rec: 11/27/17 12:09 CLB [id number]) Subjective Physical Therapy Visit Type Type Treatment Note Visit Start Time 09:52 Visit Stop Time 10:23 Total Visit Minutes 31 Number of HOME HOUSEKEEPER Visits 2 Physical Therapy Visit Comments Patient Comments Pt feeling better, wants to try stairs so she can go home today. Therapy Pain Assessment Pain When Pain Assessed During Mobility Pain Present Pain Present Pain Reported Location Right Knee Intensity 2 Scale Used Numeric (1 - 10) M4 PT-IP Mobility and Gait Start: 11/25/17 15:03 Freq: NEEDED Status: Active Protocol: Document 11/27/17 09:52 CLB (Rec: 11/27/17 12:09 CLB [id number]) PT-Bed Mobility Assessment Supine to Sit Supine to Sit Standby Assistance Sit to Supine Sit to Supine Standby Assistance Scooting Scooting to Edge of Bed Standby Assistance PT-Transfer Assessment Sit to and From Stand Sit to and from Stand Standby Assistance Equipment Transfer Assistive Device Gait Belt Front Wheeled Walker Transfers Transfer Destination Bed Comments Mobility Comments Pt doing well with mobility. Gait Assessment Gait Gait Assistance Required: Contact Guard Assist Distance (Feet) (feet) 100 Able to Maintain Weight Bearing Status Yes During Gait Assistive Devices Assistive Device Gait Belt Front Wheeled Walker Orthotic/Prosthetic Devices or Brace: No Gait Deviations General Gait Pattern Antalgic Decreased Stride Length Decreased Feet Clearance Step-to Gait Factors Limiting Gait Function Factors Limiting Gait Function Decreased Activity Tolerance Decreased Strength Limited Range of Motion Pain Comments Gait Comments Pt denied dizziness. Pt ambulated with minor cues for walker use. able to assist pt with CGA during ambulation. Stair Climbing Assessment Evaluation Level of Assist On Stairs Contact Guard Assistance Devices Stair Climbing Assistive Devices Left Railing Right Railing Technique/Endurance Stair Climbing Direction Ascend and Descend Number of Steps Climbed 3 Query Text: Stair Climbing Set # Repetitions (reps) 1 Comments Stair Climbing Comments Pt trialed stairs after demonstration and CGA of . M5 PT-IP Objective Assessments Start: 11/25/17 15:03 Freq: NEEDED Status: Active Protocol: Document 11/26/17 12:55 DLM (Rec: 11/26/17 13:28 DLM [id number]) Orientation Orientation/Cognition Level of Alertness Alert Orientation Name Age Birthday Month Date Year Day of Week Place Situation Language Function Ability No Deficits Noted Safety Awareness Understands Safety Issues Memory Description No Deficits Noted Gross Range of Motion Upper Extremity ROM Assessment Within Functional Limits Lower Extremity ROM Assessment Right Impaired Impairments pain post-op, knee AROM 10-/6 degrees Strength Upper Extremity Strength Assessment Within Functional Limits Lower Extremity Strength Assessment Right Impaired Hip needs assist with SLR Knee knee flex 3+/5, knee ext 2+/5 Ankle DF 4+/5 Comments Strength Comments pain interferes with right knee strength Coordination Assessment Gross Coordination Gross Coordination WNL Sensation Assessment Sensation Gross Sensation WNL Muscle Tone Muscle Tone WNL Yes M6 PT-IP Treatment Start: 11/25/17 15:03 Freq: NEEDED Status: Active Protocol: Document 11/27/17 09:52 CLB (Rec: 11/27/17 12:09 CLB [id number]) Physical Therapy Treatment Exercises Exercises Ankle Pumps Quad Sets Heel Slides Straight Leg Raises Short Arc Quads Seated Knee Flexion/Extension Education Education Provided Weight Bearing Status Post-Op Packet Safety Equipment Issued Equipment Type and Company Pt has two FWW one for top and bottom of stairs at home. M7 PT-IP Assessment and Plan Start: 11/25/17 15:03 Freq: NEEDED Status: Active Protocol: Document 11/27/17 09:52 CLB (Rec: 11/27/17 12:09 CLB [id number]) PT Summary Assessment and Plan Potential Rehabilitation Potential Good Status of Condition at Evaluation Unstable Summary Impairments Pain ROM Strength Balance Bed Mobility Transfers Gait Activity Tolerance Assessment Summary Pt had no c/o light headedness during ambulation or mobility . Pt was able to perform stairs safely with assist of . Pt seems able to d/c when medically stable. Goals Bed Mobility Goal Independent Transfer Goal Independent Front Wheeled Walker Gait Goal Independent Front Wheel Walker Gait Distance 50 Other Goals up and down 3 steps with rail and cane Days to Meet Goals 3 Frequency of Treatment Frequency Of Treatment Twice a Day Treatment Plan Physical Therapy Treatment Plan Bed Mobility Training Transfer Training Gait Training Therapeutic Exercise Balance Retraining Post Op Education Discharge Planning Hot or Cold Pack Recommendations To Nursing Amount of Assist Needed 1 Person Assist Discharge Recommendations PT Discharge Recommendations Home with Assistance Outpatient PT
--- NOTE | 2017-11-27 12:43 | PC.NURSE ---
Discharge: Feels ready for d/c home today. Seen by PT and given their final instructions. Seen by Dr. Hagan and received his instructions. pulled out hemovac intact. Dressing changed to rt knee, skin cleansed with saline and incision with new aquacel dressing placed. Sm sterile 2x2 placed on old hemovac site. Wound care instructions given. Pt already has rx at home. Po pain meds have been effective. Reviewed d/c instruction sheets. Questions answered. D/c home via auto w/spouse.
== END 2017-11-27 12:45 | disposition home or self-care (01) ==
LOC: AC 11-27 10:02 → OR 11-28 09:30 → AC 11-28 10:48
PROVIDERS: Admitting Provider Orthopaedic Surgery; PCP Family Medicine; Visit Provider Orthopaedic Surgery
PROC: 0SRC0JZ Replacement of Right Knee Joint with Synthetic Substitute, Open Approach (ICD-10-PCS; CPT 27447; principal; 2017-11-25 07:45)
DX: M17.11 Unilateral primary osteoarthritis, right knee (principal); Z96.652 Presence of left artificial knee joint
CPT/HCPCS: 27447; 64450; 73560; 85014; 85018; 97110; 97163; 97530; C1776; G0378; C9290; J0690; J2250; J3010; J3370; J3410